=== PATIENT | male | born 1970 | race Caucasian/White ===

== ENCOUNTER 2017-06-19 08:07 | Emergency (ER) | payer OTHER ==
[2017-06-19] MEDS ORDERED: Diphtheria,Pertussis(Acell),Tetanus Vaccine 0.5 ML SDV IM ONE (08:56)
--- NOTE | 2017-06-19 09:01 | EDM.PDOC ---
ED HPI GENERAL MEDICAL PROBLEM - General Chief Complaint: Upper Extremity Injury/Pain Stated Complaint: LT HAND INJURY Time Seen by Provider: 06/19/17 08:56 Source of Information: Reports: Patient, Family (spouse) History Limitations: Reports: No Limitations - History of Present Illness INITIAL COMMENTS - FREE TEXT/NARRATIVE: 47-year-old male who is employed at the [employer] reports an injury occurred this morning at approximately 0715 hrs. Central standard time. 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 States that he forgot to put on the safety strap and the air blew the bricks apart with bricks coming up against his left hand and smashing his hand into a steel fence. He therefore suffered injuries to the dorsal aspect of his left hand and left forearm. He can make full pronation supination at the elbow. States it's very painful to make a full fist. Not sure when his last tetanus toxoid was updated. Onset: Today Onset Date: 06/19/17 Onset Time: 07:15 Duration: Minutes: Location: Reports: Upper Extremity, Left Quality: Reports: Ache, Pressure, Stabbing Severity: Moderate Improves with: Reports: Rest Worsens with: Reports: Movement Context: Reports: Trauma. Denies: Activity, Exercise, Lifting, Sick Contact Associated Symptoms: Reports: No Other Symptoms Treatments [employer]: Reports: Other (see below) (None.) Left Hand Pain Score (Numeric/FACES): 6 - Related Data Allergies Allergy/AdvReac Type Severity Reaction Status Date / Time No Known Allergies Allergy Verified 06/19/17 08:36 Home Meds: Home Meds . [No Known Home Meds] 06/19/17 [History] Review of Systems - Review of Systems Review Of Systems: See Below Constitutional: Reports: No Symptoms Eyes: Reports: No Symptoms Ears: Reports: No Symptoms Nose: Reports: No Symptoms Mouth/Throat: Reports: No Symptoms Respiratory: Reports: No Symptoms Cardiovascular: Reports: No Symptoms GI/Abdominal: Reports: No Symptoms Genitourinary: Reports: No Symptoms Musculoskeletal: Reports: Hand Pain (Left hand and forearm pain) Skin: Reports: Other (Deep abrasions to the dorsal hand and dorsal mid forearm.) Neurological: Reports: No Symptoms Psychiatric: Reports: No Symptoms ED EXAM, GENERAL - Physical Exam Exam: See Below Exam Limited By: No Limitations General Appearance: Alert, WD/WN, Mild Distress Respiratory/Chest: No Respiratory Distress, Lungs Clear, Normal Breath Sounds Cardiovascular: Normal Peripheral Pulses, Regular Rate, Rhythm, No Edema, No Murmur Extremities: Other (Examination was limited primarily to the left upper extremity. Patient has swelling across the dorsal aspect of his hand on the left side from MCP joints to the wrist. The wrist itself is is okay to palpation and squeeze test. There is pain on squeeze test of the metata carpals. There is a deep abrasion to the mid dorsal hand. Similarly there is a deep abrasion to the mid extensor surface of the left forearm. He has full pronation supination at the wrist and elbow. Good radial and ulnar pulses present. ) Neurological: Alert, Oriented, CN II-XII Intact, Normal Cognition Psychiatric: Normal Affect, Normal Mood Skin Exam: Warm, Dry, Intact, Normal Color, No Rash Course - Vital Signs Last Recorded V/S: Last Vital Signs Temp 37.0 C 06/19/17 08:26 Pulse 79 06/19/17 08:26 Resp 18 06/19/17 08:26 BP 150/103 H 06/19/17 08:26 Pulse Ox 99 06/19/17 08:26 - Orders/Labs/Meds Orders: Active Orders 24 hr Category Date Time Status Vaccines to be Administered [RC] PER UNIT ROUTINE Care 06/19/17 08:56 Active Hand Comp Min 3V Lt [CR] Stat Exams 06/19/17 08:34 Taken Meds: Medications Discontinued Medications Generic Name Dose Route Start Last Admin Trade Name Bob PRN Reason Stop Dose Admin Diphtheria/Tetanus/Acell Pertussis 0.5 ml 06/19/17 08:56 06/19/17 09:11 Adacel IM 06/19/17 08:57 0.5 ml .ONCE ONE Administration - Radiology Interpretation Free Text/Narrative:: 47-year-old male presents to the ED with work-related injuries. Suffered injuries in the [employer] where he is employed this morning. Is essentially his left hand was blown by her compression into a steel fence. He suffered blunt trauma to the dorsal aspect of his left hand and mid forearm. The forearm shows no bony injuries but a deep abrasion over the extensor surface approximate 1.5 cm in diameter. Similarly there is a marked swelling of the dorsal aspect of his left hand. He is able to make a fist but it's painful due to the swelling on the dorsal aspect of the hand. There is a 1.4 cm abrasion mid dorsal left hand as well. Plan x-ray of the left hand to be done. Tetanus toxoid needs to be updated. - Re-Assessments/Exams Free Text/Narrative Re-Assessment/Exam: 06/19/17 09:02 x-rays of the left hand and wrist area do not reveal any fractures. Wounds will be cleansed debridement and topical antibiotic placed. Then Telfa pad to both and then an Fortunato wrap to both areas He will use Motrin 600 mg by mouth every 6 hours when necessary for pain relief. Fortunato wrap will be applied to the hand and forearm so that he can place ice to the area one half hour out of every 4 hours today and tomorrow. No will be given to excuse him from the work place for at least the next 3 days. Departure - Departure Time of Disposition: 09:13 Disposition: Home, Self-Care 01 Condition: Fair Clinical Impression: Abrasion hand Qualifiers: Encounter type: initial encounter Laterality: right Qualified Code(s): S60.511A - Abrasion of right hand, initial encounter Contusion of hand, right Qualifiers: Encounter type: initial encounter Qualified Code(s): S60.221A - Contusion of right hand, initial encounter Contusion of forearm, right Qualifiers: Encounter type: initial encounter Qualified Code(s): S50.11XA - Contusion of right forearm, initial encounter Abrasion forearm Qualifiers: Encounter type: initial encounter Laterality: right Qualified Code(s): S50.811A - Abrasion of right forearm, initial encounter - Discharge Information Referrals: PCP,None [Primary Care Provider] - Forms: ED Department Discharge, ED Return to Work/School Form Additional Instructions: Evaluation in the emergency room this morning in regards to injuries sustained to the left hand and forearm during work this morning. He suffered blunt trauma to the dorsal aspect of the hand and forearm with deep abrasions over the dorsal hand and mid forearm. Is of the hand and wrist area do not reveal any broken bones. Injuries are therefore soft tissue to the tendons and blood vessels on the surface of the hand. Treatment is to daily cleanse the wounds with soap and water. Showering is okay. Then apply topical antibiotic such as bacitracin or Polysporin to the wounds and cover with bandage to keep clean. Fortunato wrap on during the day and off at night for the next 2 nights. Ice pack to the area one half hour out of every 4 hours today and tomorrow. Motrin 600 mg every 6 hours as needed for pain relief. Suggest off work for at least 3 days to the swelling goes down in the dorsal hand and you're able to regain full function of your left hand. - My Orders Last 24 Hours: My Active Orders 06/19/17 08:34 Hand Comp Min 3V Lt [CR] Stat 06/19/17 08:56 Vaccines to be Administered [RC] PER UNIT ROUTINE - Assessment/Plan Last 24 Hours: My Active Orders 06/19/17 08:34 Hand Comp Min 3V Lt [CR] Stat 06/19/17 08:56 Vaccines to be Administered [RC] PER UNIT ROUTINE
[2017-06-19] MEDS ORDERED: Acetaminophen/oxyCODONE 325-5 MG Tab PO ONE (09:15)
[2017-06-19] MEDS ORDERED: Ibuprofen 600 MG Tab PO ONE (09:15)
--- NOTE | 2017-06-19 09:18 | CR ---
Left hand: Four views of the left hand were obtained. Comparison: No previous study. Old ununited fracture is identified within the ulnar styloid process. Cystic change is noted within the distal radius compatible with old fracture which appears healed. Joint spaces within the hand are preserved. No acute fracture, dislocation or other bony abnormality is seen. Impression: 1. Old fractures within the wrist as described above. 2. Nothing acute is appreciated on left hand study. Diagnostic code #2
== END 2017-06-19 09:40 | disposition home or self-care (01) ==
LOC: JD.ED 08:07
DX: S60.221A Contusion of right hand, initial encounter (principal); S50.11XA Contusion of right forearm, initial encounter; W22.8XXA Striking against or struck by other objects, initial encounter; Z23 Encounter for immunization
CPT/HCPCS: 73130-26-LT; 73130-LT; 90471; 90715; 99283; 99283-25

== ENCOUNTER 2018-07-02 16:10 | Emergency (ER) | payer BC, OTHER ==
--- NOTE | 2018-07-02 17:59 | EDM.PDOC ---
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 He states that he did not have any significant pain at the time, but that his left knee started to really hurt around 02:00 Monday morning, 06/29. The patient states that he had a prior left patella fracture, status- post ORIF in 1997. The patient does not have a PCP. Left Knee Pain Score (Numeric/FACES): 2 - Related Data Allergies Allergy/AdvReac Type Severity Reaction Status Date / Time No Known Allergies Allergy Verified 07/02/18 16:21 Home Meds: Home Meds . [No Known Home Meds] 06/19/17 [History] Past Medical History - Past Surgical History HEENT Surgical History: Reports: Tonsillectomy Musculoskeletal Surgical History: Reports: Shoulder Surgery (left, arthroscopic and open), Other (See Below) (Left patella ORIF) Social & Family History - Family History Family Medical History: Noncontributory - Tobacco Use Smoking Status *Q: Current Every Day Smoker Years of Tobacco use: 30 Packs/Tins Daily: 1 Packs/Tins Daily Comment: Down from 2 ppd - Caffeine Use Caffeine Use: Reports: Coffee - Alcohol Use Alcohol Use History: Yes Alcohol Use Frequency: Socially - Recreational Drug Use Recreational Drug Use: No - Living Situation & Occupation Living situation: Reports: , Other (with ex-) Occupation: Employed ([employer]) Review of Systems - Review of Systems Review Of Systems: ROS reveals no pertinent complaints other than HPI. ED EXAM, GENERAL - Physical Exam Exam: See Below Exam Limited By: No Limitations General Appearance: Alert, WD/WN, No Apparent Distress Extremities: Other (There is a less than 1 cm linear scab to the superior/ lateral aspect of the patient's left patella, where the patient indicates that he was struck by the brick. Immediately inferior to this, is considerable tenderness, however, there are no other visible abnormalities to the left knee, such as swelling, erythema, ecchymosis, or abrasion. Neurovascular status of the left lower extremity is intact.) Course - Vital Signs Last Recorded V/S: Last Vital Signs Temp 36.2 C 07/02/18 16:18 Pulse 95 07/02/18 16:18 Resp 18 07/02/18 16:18 BP 157/99 H 07/02/18 16:18 Pulse Ox 96 07/02/18 16:18 - Re-Assessments/Exams Free Text/Narrative Re-Assessment/Exam: 07/02/18 17:50 2-view radiographs of the patient's left knee appears to demonstrate 2 surgical screws lying horizontally within the patella. No other acute abnormalities, such as fracture or dislocation, identified. Formal read per the Radiologist pending. Based on the patient's history, physical examination, and ED X-Rays, he likely has a contusion to the distal lateral quadriceps tendon. I will recommend over- the-counter ibuprofen, along with ice, and I will refer him to Dr. Patel, as this is a work-related injury. Departure - Departure Time of Disposition: 17:53 Disposition: Home, Self-Care 01 Condition: Good Clinical Impression: Injury of tendon of left lower extremity - Discharge Information *PRESCRIPTION DRUG MONITORING PROGRAM REVIEWED*: Not Applicable *COPY OF PRESCRIPTION DRUG MONITORING REPORT IN PATIENT DONNELL: Not Applicable Referrals: Stanislaw Patel MD [Physician] - Forms: ED Department Discharge Additional Instructions: You were seen in the emergency room for left knee Pain after being struck by a brick at work early morning, 06/28/2018. Workup in the ER included x-rays of your knee, which showed old surgical screws in your left patella, but no other acute injuries. Based on your history, physical examination, and ER x-rays, you have most likely injured your distal quadriceps tendon. We recommend that you ice your left knee as much as possible over the next 2 or 3 days, and take [id number] ibuprofen, 2-3 tablets (400-600 mg) every 8 hours, with food, as needed for discomfort. Follow-up with the Occupational Medicine physician Dr. Stanislaw Patel, at the next available appointment. If any other problems, please do not hesitate to return to the ER.
--- NOTE | 2018-07-03 06:42 | CR ---
Left knee: AP, lateral and sunrise patellar views of the left knee were obtained. Comparison: No previous left knee exam. Two orthopedic screws are seen within the patella presumably affixing an old healed fracture. Medial and lateral joint compartments are maintained in height. No joint effusion is seen. No fracture or other abnormality is identified. Impression: 1. Incidental finding. Nothing acute is appreciated. Diagnostic code #2
== END 2018-07-02 18:35 | disposition home or self-care (01) ==
LOC: JD.ED 16:10
DX: S76.192A Other specified injury of left quadriceps muscle, fascia and tendon, initial encounter (principal); W22.8XXA Striking against or struck by other objects, initial encounter; Y99.0 Civilian activity done for income or pay; F17.200 Nicotine dependence, unspecified, uncomplicated
CPT/HCPCS: 73562-26-LT; 73562-LT; 99282; 99283

== ENCOUNTER 2022-03-21 23:28 | Emergency (ER) | payer BC ==
[2022-03-22] MEDS ORDERED: Acetaminophen/HYDROcodone 325-5 MG Tab PO ONE (01:22)
== END 2022-03-22 03:18 | disposition home or self-care (01) ==
LOC: JD.ED 23:28
DX: S40.252A Superficial foreign body of left shoulder, initial encounter (principal); R50.9 Fever, unspecified; F17.210 Nicotine dependence, cigarettes, uncomplicated; Z86.16 Personal history of COVID-19; Z20.822 Contact with and (suspected) exposure to COVID-19
CPT/HCPCS: 73030; 87635; 99283; A9270; U0002